=== PATIENT | female | born 1980 | race Caucasian/White ===

== ENCOUNTER 2022-10-16 03:43 | Emergency (ER) | payer OTHER, SELFPAY ==
[2022-10-16 03:44] VITALS: BP 158/90; PULSE 91; RESP 15; TEMP 36.9; O2SAT 97; BMI 39.9
--- NOTE | 2022-10-16 03:54 | EX.ED.UPPERE ---
HPI History of Present Illness HPI Narrative: Patient presents with right forearm and elbow pain that has been getting aggressively worse over the past 5 days. Patient denies any trauma or injury. Patient states initially it was intermittent but since last night it has been constant. Patient denies any trauma or injury. Patient describes the pain as burning. Patient states the pain is worse with movement. Patient states it was better with ice. Patient does admit to some tingling in her right forearm and hand. Patient denies any weakness. Chief Complaint: Upper Extremity Injury Informant: patient Onset/Context/Timing Onset: Days Context: Gradual Onset Timing: Continuous Quality of Pain: Burning Location: Right elbow and forearm Worsened by: Movement Relieved by: Ice Associated Symptoms Associated Symptoms: Positive for Parasthesia; Negative for Weakness or Loss of Funtion PFSH PFSH Medical History no medical history no medical history Home Medications naproxen 500 mg tablet (Naprosyn) 500 mg PO BID PRN pain #20 tabs 10/16/22 [Rx Last Taken Unknown] Allergy/AdvReac Type Severity Reaction Status Date / Time No Known Allergies Allergy Verified 10/16/22 03:50 Surgical History no surgical history no surgical history Social History Smoking Status: Never smoker ROS ROS ED Constitutional Constitutional ED: Denies chills or fever(s) Eyes Eyes: Denies blurry vision or change in vision ENT ENT ED: Denies rhinorrhea or sore throat Cardiovascular Cardiovascular: Denies chest pain or palpitations Respiratory/Chest Respiratory/Chest: Denies cough or dyspnea Gastrointestinal Gastrointestinal: Reports nausea; Denies vomiting Genitourinary Genitourinary ED: Denies dysuria or hematuria Musculoskeletal Musculoskeletal: Reports neck pain; Denies back pain Integumentary Denies abscess or rash Neurologic Neurologic: Reports paresthesias RUE; Denies headache(s) or weakness Allergic/Immunologic Allergic/Immunologic ED: Denies mouth swelling or urticaria EXAM Physical Exam Const Vital Signs: 10/16/22 03:44 Temperature 98.5 F Temperature Source Temporal Pulse Rate 91 Respiratory Rate 15 Blood Pressure 158/90 H Blood Pressure Mean 112 Pulse Ox 97 Oxygen Delivery Method Room Air Positive well nourished, well developed and obese General Appearance ED: well developed and NAD Nutritional Appearance: obese HEENT Reports moist mucous membranes Neck full ROM and supple Extremity Extremity Narrative: There is tenderness over the right elbow and proximal forearm. There is no edema or ecchymosis. There is no bony crepitance or step-off. There is no deformity noted. Range of motion was limited in all motions of the right elbow secondary to pain. Forearm compartments were soft. Radial pulses are equal bilaterally. Sensation was intact to light touch in the radial, median, and ulnar areas. Strength is 5/5 in the radial, median, and ulnar areas. Neuro oriented x3, CN's II-XII intact bilaterally, moves all extremities, no focal motor deficits and no sensory deficits noted Sensorium / Orientation: alert Motor Exam: strength 5/5 throughout Psych mental status grossly normal MDM MDM MDM Narrative Medical decision making narrative: Differential diagnosis includes tendinitis, muscle strain, and occult fracture. X-rays of the right elbow will be obtained to assess for occult fracture. Radiography Diagnostic Testing: X-rays of the right elbow were obtained. There are 3 views. On my independent interpretation, there is no acute fracture or dislocation. There is no joint effusion noted. Radiologist also interpreted the x-rays and agrees. Treatment and Re-Evaluation Narrative: Patient was given a dose of [place] here. Patient was instructed to ice and elevate the right elbow. Patient was given a prescription for Naprosyn. Patient was instructed to follow-up with her primary care physician in 5 to 7 days for reevaluation. Patient was instructed to continue using ice to the area. Patient was instructed return if worse in any way. Patient understood and was agreeable with the plan. All questions were answered. Discharge Plan Triage Chief Complaint: Upper Extremity Injury ED Provider: Joao Bower Dx/Rx/DC Orders Clinical Impression: Muscle strain of right forearm Instructions: ED Muscle Strain, Extremity Prescriptions: New naproxen [Naprosyn] 500 mg tablet 500 mg PO BID PRN (Reason: pain) Qty: 20 0RF Primary Care Provider: Davonte Rosario Referrals: Davonte Rosario DO [Primary Care Provider] - 3-5 Days Disposition Disposition: Home, Self Care
[2022-10-16] MEDS: HYDROcodone Bitartrate/Apap 5/325 Tablet PO (04:05)
--- NOTE | 2022-10-16 04:15 | RAD_ITS ---
INDICATION: Injury/Pain. C/O RIGHT FOREARM PAIN Tamp; EDEMA THAT STARTED WEDNESDAY AND IS GETTING WORSE. Best images possible due to patient being unable to extend arm. EXAMINATION/TECHNIQUE: X-RAY - RIGHT XR Elbow Min 3 Views COMPARISON: None. FINDINGS: 4 oblique views of the right elbow. BONES: Normal anatomic alignment without evidence of fracture or subluxation. No concerning bony lesion or abnormal sclerosis to suggest lesion. JOINTS: No significant degenerative change. SOFT TISSUES: Unremarkable. RAD/Elbow min 3 Views IMPRESSION: No acute osseous abnormality of the right elbow. Electronically Signed: Andrea Cano MD at 4:45 EDT ,
[2022-10-16 05:02] VITALS: RESP 16
== END 2022-10-16 05:03 | disposition home or self-care (01) ==
PROVIDERS: Emergency Provider Emergency Medicine; PCP Family Medicine; Visit Provider Emergency Medicine
DX: S56.911A Strain of unspecified muscles, fascia and tendons at forearm level, right arm, initial encounter (principal)
CPT/HCPCS: 73080; 99283